=== PATIENT | female | born 1955 | race Two or more races ===

== ENCOUNTER 2022-11-28 19:49 | Emergency (ER) | payer OTHER ==
[~2022-11-28] VITALS: Ht 160 cm; Wt 70.8 kg
[2022-11-28] MEDS ORDERED: ENALAPRIL M1 MG/1 ML PO (20:32)
[2022-11-28] MEDS ORDERED: LEXAPRO5 MG PO (20:32)
[2022-11-28] MEDS ORDERED: DEPAKOTE ER250 MG PO (20:32)
[2022-11-28] MEDS ORDERED: SINVASTATIN (20:33)
[2022-11-28] MEDS ORDERED: DICLOFENAC SODI75 MG PO (21:48)
== END 2022-11-28 22:00 | disposition home or self-care (01) ==
LOC: ER 19:49
DX: M94.0 Chondrocostal junction syndrome [Tietze] (principal); M25.562 Pain in left knee; I10 Essential (primary) hypertension